=== PATIENT | female | born 2000 ===

== ENCOUNTER 2024-04-23 07:00 | Inpatient (IN) | payer BC ==
[2024-04-23] MEDS ORDERED: Nalbuphine 10 MG/ML Syringe IVPUSH PRN (07:14)
[2024-04-23] MEDS ORDERED: Ondansetron 4 MG/2 ML SDV IVPUSH PRN (07:14)
[2024-04-23] MEDS ORDERED: Calcium Carbonate 500 MG Tab.Chew PO PRN (07:14)
[2024-04-23] MEDS ORDERED: Acetaminophen 325 MG Tab PO PRN ×2 (07:14→23:36)
[2024-04-23] MEDS ORDERED: Oxytocin/Lactated Ringers 30 UNIT/500 ML BAG IV SCH ×2 (07:15→23:36)
[2024-04-23 08:05] LABS: BASOPHILS ABSOLUTE AUTO 0.1 K/mm3 (0.0-0.2); BASOPHILS PERCENT AUTO 0.7 % (0.0-1.0); EOSINOPHILS ABSOLUTE AUTO 0.2 K/mm3 (0.0-0.4); EOSINOPHILS PERCENT AUTO 2.6 % (0.0-6.0); HEMATOCRIT 38.2 % (37.0-47.0); HEMOGLOBIN 12.5 gm/dl (12.0-16.0); IMMATURE GRAN ABSOLUTE AUTO 0.03 K/mm3 (0.00-0.05); IMMATURE GRAN PERCENT AUTO 0.3 % (0.0-0.4); LYMPHOCYTES ABSOLUTE AUTO 3.6 K/mm3 (1.0-4.8); LYMPHOCYTES PERCENT AUTO 38.9 % (24.0-44.0); MEAN CORPUSCULAR HEMOGLOBIN 26.6 pg (28.0-32.0); MEAN CORPUSCULAR HGB CONC 32.7 g/dl (32.0-36.0); MEAN CORPUSCULAR VOLUME 81.3 fl (83.0-99.0); MEAN PLATELET VOLUME 11.9 fl (9.4-12.3); MONOCYTES ABSOLUTE AUTO 0.5 K/mm3 (0.0-0.8); MONOCYTES PERCENT AUTO 5.2 % (0.0-8.0); NEUTROPHILS ABSOLUTE AUTO 4.9 K/mm3 (1.8-7.7); NEUTROPHILS PERCENT AUTO 52.3 % (41.0-71.0); PLATELET COUNT,PLT 285 K/mm3 (150-400); WHITE BLOOD CELL COUNT,WBC 9.34 K/mm3 (3.9-11.3)
[2024-04-23] MEDS: Oxytocin/Lactated Ringers 30 UNIT/500 ML BAG IV SCH (08:15)
[2024-04-23 08:33] LABS: A/G RATIO 0.6 (1-2); ALANINE AMINOTRANSFERASE,ALT 21 U/L (14-59); ALBUMIN 2.4 g/dl (3.4-5.0); ALKALINE PHOSPHATASE 103 U/L (46-116); ANION GAP 13.6 (5-15); ASPARTATE AMNIOTRANSFERASE,AST 21 U/L (15-37); BILIRUBIN TOTAL 0.6 mg/dL (0.2-1.0); BLOOD UREA NITROGEN,BUN 13 mg/dL (7-18); BUN/CREATININE RATIO 16.3 (14-18); CALCIUM 8.6 mg/dL (8.5-10.1); CARBON DIOXIDE,CO2 21 mEq/L (21-32); CHLORIDE,CL 104 mEq/L (98-107); CREATININE 0.8 mg/dL (0.55-1.02); ESTIMATED GFR 105 mL/min (>60); GLUCOSE RANDOM 126 mg/dL (70-99); LACTATE DEHYDROGENASE,LDH 184 U/L (81-234); POTASSIUM,K 3.6 mEq/L (3.5-5.1); PROTEIN TOTAL,TP 6.3 g/dl (6.4-8.2); SODIUM,NA 135 mEq/L (136-145)
[2024-04-23] MEDS: Lactated Ringers 1,000 ML IV SCH (09:45)
[2024-04-23 10:02] LABS: PROTEIN,URINE RANDOM < 6.0 mg/dL (0.0-11.8)
[2024-04-23] MEDS ORDERED: Bupivacaine/fentaNYL/NS 100 ML Bag EPIDUR PRN (12:07)
[2024-04-23] MEDS ORDERED: diphenhydrAMINE 50 MG/ML SDV IVPUSH PRN (12:07)
[2024-04-23] MEDS ORDERED: ePHEDrine 50 MG/ML SDV IVPUSH PRN (12:07)
[2024-04-23] MEDS ORDERED: fentaNYL 100 MCG/2 ML SDV EPIDUR PRN (12:07)
[2024-04-23] MEDS: Lidocaine 1% 50 ML MDV INJECT PRN (18:52)
[2024-04-23] MEDS ORDERED: Benzocaine/Menthol 20%-0.5% Spray 78 GM Cannister TOP PRN (23:36)
[2024-04-23] MEDS ORDERED: Witch Hazel Medicated Pads 40/Jar TOP PRN (23:36)
[2024-04-23] MEDS ORDERED: Magnesium Hydroxide 400 MG/5 ML Susp 30 ML Cup PO PRN (23:36)
[2024-04-23] MEDS ORDERED: Hydrocortisone Acetate 25 MG Supp RECTAL PRN (23:36)
[2024-04-24] MEDS: Docusate Sodium 100 MG Cap PO SCH (00:20)
[2024-04-24] MEDS: Ibuprofen 600 MG Tab PO SCH ×2 (00:20→07:15)
[2024-04-24 05:52] LABS: HEMATOCRIT 35.4 % (37.0-47.0); HEMOGLOBIN 11.6 gm/dl (12.0-16.0); MEAN CORPUSCULAR HEMOGLOBIN 26.9 pg (28.0-32.0); MEAN CORPUSCULAR HGB CONC 32.8 g/dl (32.0-36.0); MEAN CORPUSCULAR VOLUME 82.1 fl (83.0-99.0); MEAN PLATELET VOLUME 12.3 fl (9.4-12.3); PLATELET COUNT,PLT 252 K/mm3 (150-400); RED BLOOD CELL COUNT 4.31 M/mm3 (4.10-5.30); WHITE BLOOD CELL COUNT,WBC 18.99 K/mm3 (3.9-11.3)
[2024-04-24] MEDS: Prenatal Multivitamin with Calcium/Folic Acid/Iron Tab PO SCH (09:05)
== END 2024-04-24 20:50 | disposition home or self-care (01) | DRG 560 ==
LOC: JD.OB 07:00 → OBSVTOIN 18:43 → JD.OB 18:44
PROVIDERS: ADMIT Obstetrics & Gynecology; ATTEND Obstetrics & Gynecology
PROC: 10E0XZZ Delivery of Products of Conception, External Approach (ICD-10-PCS; principal; 2024-04-23)
PROC: 10907ZC Drainage of Amniotic Fluid, Therapeutic from Products of Conception, Via Natural or Artificial Opening (ICD-10-PCS; 2024-04-23)
PROC: 3E033VJ Introduction of Other Hormone into Peripheral Vein, Percutaneous Approach (ICD-10-PCS; 2024-04-23)
PROC: 3E0P7VZ Introduction of Hormone into Female Reproductive, Via Natural or Artificial Opening (ICD-10-PCS; 2024-04-23)
PROC: 0KQM0ZZ Repair Perineum Muscle, Open Approach (ICD-10-PCS; 2024-04-23)
DX: O24.02 Pre-existing type 1 diabetes mellitus, in childbirth (principal); Z37.0 Single live birth; O34.219 Maternal care for unspecified type scar from previous cesarean delivery; O13.4 Gestational [pregnancy-induced] hypertension without significant proteinuria, complicating childbirth; O70.22 Third degree perineal laceration during delivery, IIIb; Z3A.39 39 weeks gestation of pregnancy; Z87.59 Personal history of other complications of pregnancy, childbirth and the puerperium; Z79.4 Long term (current) use of insulin
CPT/HCPCS: 36415; 59025; 59409; 80053; 82570; 83615; 84156; 85025; 85027; 86592; 86850; 86900; 86901; A9270-GY; J2001; J7120; J7999